=== PATIENT | female | born 1980 | race Two or more races ===

== ENCOUNTER 2023-04-22 07:02 | Outpatient (CLI) | payer OTHER ==
[~2023-04-22 07:02] MED LIST: ACID REDUCER20 M1 PO; CLONAZEPAM1 MG PO; COZAAR25 MG PO; DICY20TA PO; GLIPIZIDE XL5 MG PO; LEVO-T125 MCG PO; LIPITOR20 MG PO; MECLIZINE HCL12.5 MG PO; ONDANSETRON4 MG/2 M1; PROZAC20 MG PO; RESTORIL30 MG PO
== END 2023-04-22 07:03 | disposition home or self-care (01) ==
LOC: LAB 07:02
PROVIDERS: ATTEND Internal Medicine
DX: E87.6 Hypokalemia (principal)

== ENCOUNTER 2023-05-06 06:24 | Day surgery (SDC) | payer OTHER ==
[2023-04-17 13:37] LABS: PH,URINE 6.5 (5.0-8.0); URINE APPEARANCE Clear; URINE BILIRRUBIN Negative (NEGATIVE); URINE BLOOD Negative; URINE COLOR Yellow; URINE GLUCOSE Negative (NEGATIVE); URINE LEUKOCYTE Negative; URINE NITRATE Negative; URINE PROTEIN Trace (NEGATIVE)
[2023-04-17 13:41] LABS: URINE BACTERIA 62.9 uL (0.0-1933); URINE EPITHELIAL CELLS 59.3 uL (0.0-38.8); URINE RBC 4.3 uL (0.0-20.8)
[2023-04-17 13:45] LABS: HEMATOCRIT 40.9 % (36.0-45.00); HEMOGLOBIN 14.6 g/dL (12.0-15.00); MEAN CELL VOLUME 89.4 fL (80.00-100.00); MEAN CORPUSCULAR HEMOGLOBIN 31.8 pg (27.00-32.0); MEAN CORPUSCULAR HGB CONC 35.6 g/dl (32.0-36.0); PLATELET COUNT 363 K/uL (150-450); RED BLOOD COUNT 4.58 M/uL (4.00-6.00)
[2023-04-17 14:25] LABS: ALBUMIN 4.6 gm/dL (3.4-5.0); BILIRUBIN TOTAL 1.69 mg/dL (0.3-1.2); CALCIUM 9.5 mg/dL (8.5-10.1); CREATININE SERUM 0.9 mg/dL (0.55-1.02); GFR 68.66; GLOBULINA 3.2 G/DL (2.4-3.5); TOTAL PROTEIN 7.8 gm/dL (6.4-8.2)
[2023-04-17 14:26] LABS: INR 1.06; PARTIAL THROMBOPLASTIN TIME 33.3 SECONDS (22.0-34.0); PROTHROMBIN TIME 11.1 SECONDS (9.0-11.5)
[2023-04-17 14:32] LABS: URINE EPITHELIAL CELLS 0-4 /HPF; URINE YEAST NEGATIVE /hpf
[2023-04-17 15:29] LABS: POTASSIUM 2.95 mEq/L (3.5-5.1)
[~2023-05-06] VITALS: Ht 162.6 cm; Wt 52.2 kg
[2023-05-06] MEDS ORDERED: CEFAZOLIN SODIUM 1,000 MG VIAL ONE (11:09)
[2023-05-06] MEDS ORDERED: CEFAZOLIN SODIUM 1,000 MG VIAL IV ONE (13:30)
[2023-05-06] MEDS ORDERED: METHYLPREDNISOLONE ACETATE 80 MG/ML VIAL ONE (13:54)
[2023-05-06] MEDS ORDERED: METHYLPREDNISOLONE ACETATE 80 MG/ML VIAL IJ ONE (14:15)
[2023-05-06] MEDS ORDERED: ONDANSETRON HCL 2 MG/ML VIAL ONE (15:49)
[2023-05-06] MEDS ORDERED: DEXAMETHASONE SODIUM PHOSP/PF 10 MG/ML VIAL ONE (16:08)
== END 2023-05-06 17:05 | disposition home or self-care (01) ==
LOC: CIR.AMB 06:24
PROVIDERS: ATTEND Orthopaedic Surgery Hand Surgery
DX: M24.831 Other specific joint derangements of right wrist, not elsewhere classified (principal); E11.9 Type 2 diabetes mellitus without complications; E78.00 Pure hypercholesterolemia, unspecified; Z20.822 Contact with and (suspected) exposure to COVID-19; I10 Essential (primary) hypertension; Z91.011 Allergy to milk products